=== PATIENT | male | born 1940 | race Caucasian/White ===

== ENCOUNTER → 2017-03-16 | Outpatient (CLI) | payer MEDICARE, BC ==
[~2017-03-16] MED LIST: ASPI325T4 PO; BISA-42 PO; CALC-68 PO; CYAN1TAB15 SL; EZET10TA3 PO; GADOBUTROL 10 MMOL/10 ML VIAL IV ONE; GLUC1TAB26 PO; MULT1TAB13 PO; NAPR220C4 PO; NIAC500T PO; OMEG1CAP72 PO; PRAV20TA2 PO; PSYL0.5215 PO; TURM500C7 PO; [UNRECOGNIZED DRUG - OTHER]
--- NOTE | 2017-03-16 12:51 | KCIC ---
MR LUMBAR SPINE WITH CONTRAST Indication: Low back pain with bilateral lower extremity numbness. TECHNIQUE: Multiple planar multisequence imaging was performed through the lumbar spine. FINDINGS: There is no compression fracture or deformity. Bone marrow signal is within normal limits. The conus terminates normally at the level of T12-L1. Visualized intra-abdominal contents are within normal limits. There is no abnormal intrathecal enhancement. At the level of L2-L3 there is severe central spinal stenosis secondary to a broad-based disc protrusion and facet and ligamentum flavum hypertrophy. At L3-L4 there is edema within the disc space but no abnormal enhancement. At L4-L5 there is a left eccentric disc protrusion which causes right lateral recess stenosis and could impinge upon the descending left L5 nerve. At L5-S1 there is no high-grade stenosis. IMPRESSION: Severe Central spinal stenosis at L2-L3. There is disc edema the level of L3-L4 could be degenerative in nature but early discitis cannot be excluded and follow-up should be considered if there is persistent low back pain. At this time, there is no abnormal disc enhancement or adjacent endplate edema. Electronically signed by: Rajan Acosta MD (03/16/2017 12:48 PM)
== END | disposition home or self-care (01) ==
LOC: KCIC MRI 10:22
PROVIDERS: ATTEND Neurological Surgery
DX: M48.06 Spinal stenosis, lumbar region (principal)
CPT/HCPCS: 72158; 82565; A9585

== ENCOUNTER → 2017-03-29 | Outpatient (CLI) | payer MEDICARE, BC ==
[~2017-03-29] MED LIST changes: -GADOBUTROL 10 MMOL/10 ML VIAL IV ONE
[2017-03-29 15:45] LABS: BASO % 1 % (0-3); EOS % 5 % (0-3); HEMATOCRIT 49.6 % (39.0-53.0); HEMOGLOBIN 16.8 g/dL (13.0-17.5); LYMPH # 1.8 x10^3/uL (1.0-4.8); LYMPH % 26 % (24-48); MEAN CORPUSCULAR HEMOGLOBIN 30 pg (25-35); MEAN CORPUSCULAR HGB CONC 34 g/dL (31-37); MEAN CORPUSCULAR VOLUME 89 fL (79-100); MONO % 9 % (0-9); NEUT % 59 % (31-73); PLATELET COUNT 226 x10^3/uL (140-400); RED CELL DISTRIBUTION WIDTH 13.7 % (11.5-14.5); WHITE BLOOD COUNT 6.8 x10^3/uL (4.0-11.0)
[2017-03-29 16:29] LABS: ALBUMIN 3.8 g/dL (3.4-5.0); ALBUMIN/GLOBULIN RATIO 1.2 (1.0-1.7); CALCIUM 8.7 mg/dL (8.5-10.1); CREATININE 1.1 mg/dL (0.7-1.3); GFR 65.4; TOTAL BILIRUBIN 0.4 mg/dL (0.2-1.0); TOTAL PROTEIN 7.1 g/dL (6.4-8.2)
--- NOTE | 2017-04-01 09:48 | HP ---
ADMIT DATE: Jose Murguia dictating for Dr. Bryan Eaton. Date of surgery will be 04/04/2017. HISTORY OF PRESENT ILLNESS: The patient is a pleasant 76-year-old who underwent surgery by me in 1993 and did well. His current problem is low back pain and right greater than left leg pain. The problem started about 15 years ago. He rates his pain as an 8/10 now. He says standing ____ for long periods is associated with significant pain. He exercises routinely. He finds that that does help him to a degree. He takes Aleve and Tylenol. He has had epidural steroid injections in the fall of 2016, which did not benefit him significantly. PAST MEDICAL HISTORY: Arthritis, artificial joint bilateral hips, heart trouble/disease. PAST SURGICAL HISTORY: Tonsillectomy in 2, knee surgery in 1975, lumbar surgery by [facility] in 1993, left and right hip replacements in 2013 and 2014, polyp removal in 2004. FAMILY HISTORY: Cancer, hypertension, heart disease, spine problems. SOCIAL HISTORY: Retired. . Exercises daily. Nonsmoker. Drinks 1-2 alcoholic drinks daily. Drinks coffee and soda daily. ALLERGIES: No known drug allergies. CURRENT MEDICATIONS: Aleve, ____, pravastatin sodium, niacin, aspirin, vitamin B12, Centrum Silver, calcium citrate, fish oil, glucosamine, Tylenol. REVIEW OF SYSTEMS: A 12-point review of systems was obtained and is noncontributory except for that mentioned above. PHYSICAL EXAMINATION: NEUROSURGERY EXAMINATION: GENERAL APPEARANCE: Alert, pleasant, no acute distress. HEAD: Normocephalic and atraumatic. SKIN: Warm and dry, well-healed lumbar incision. MUSCULOSKELETAL: Lumbar paraspinal muscle bulk is normal, restricted range of motion of the lumbar spine, [id number] tenderness of lower lumbar spine with palpation, normal range of motion of the lower extremities bilaterally. EXTREMITIES: No clubbing, cyanosis, or edema. NEUROLOGIC: Alert and oriented x 3, normal recent and remote memory, strength 5/5 in bilateral lower extremities, sensory was intact to light touch in bilateral lower extremities, reflexes were trace and symmetric in the lower extremities bilaterally, positive straight leg raising on the right, negative straight leg raising on the left, normal gait. IMAGING: Reviewed. I reviewed a lumbar MRI scan. On that I noticed severe stenosis at L2-L3. ASSESSMENT: Spinal stenosis, lumbar region. PLAN: Given that there is severe stenosis at L2-L3, I am recommending a lumbar laminectomy. I did discuss this with him in detail. I spoke about the surgery and the risks involved. I also outlined the expected postoperative course. We will move forward with lumbar MRI scans. BRYAN EATON MD DR: ED/messi JOB#: [id number] / [id number]
== END | disposition home or self-care (01) ==
LOC: SURGPAT 14:38
PROVIDERS: ATTEND Neurological Surgery
DX: M48.06 Spinal stenosis, lumbar region (principal)
CPT/HCPCS: 36415; 80053; 85027; 87641

== ENCOUNTER 2017-04-04 08:15 | Day surgery (SDC) | payer MEDICARE, BC ==
[~2017-04-04] VITALS: Ht 172.7 cm; Wt 94.8 kg
[~2017-04-04 08:15] MED LIST changes: -ASPI325T4 PO; +ASPI325T8 PO; +BACITRACIN 50,000 UNIT in IV NORMAL SALINE 1000ML BAG 1,000 ML IRR ONE; +BUPIVAC MPF-EPI 0.5%-1:200000 30 ML VIAL. ONE; +EZET10TA18 PO; -EZET10TA3 PO; +GELATIN SPONGE SIZE 100. ONE; +HYDROmorphone 2 MG/ML VIAL IV PRN; +IV RINGERS,LACTATED 1000ML 1,000 ML IV SCH; +KETOROLAC 60 MG/2 ML INJ FOR OR. ONE; +LIDOCAINE 1% 1 ML SYRINGE. ID PRN; +MORPHINE SULFATE 2 MG/ML DISP.SYRIN. IV PRN; +OMEG-151 PO; -OMEG1CAP72 PO; +ONDANSETRON PF 4 MG/2 ML VIAL. IV PRN; +PROCHLORPERAZINE 10 MG/2 ML VIAL. IV PRN; +THROMBIN TOPICAL 20,000 UNIT SPRAY.SYRN KIT TP ONE; +fentaNYL PF VIAL 100 MCG/2 ML VIAL IV PRN
[2017-04-04] MEDS ORDERED: ONDANSETRON PF 4 MG/2 ML VIAL. ONE (10:05)
[2017-04-04] MEDS ORDERED: ROCURONIUM 50 MG/5 ML VIAL. ONE (10:05)
[2017-04-04] MEDS ORDERED: 0.9 % SODIUM CHLORIDE 50 ML VIAL. IJ ONE (10:05)
[2017-04-04] MEDS ORDERED: PROPOFOL 50 ML IV ONE ×2 (10:05→13:34)
[2017-04-04] MEDS ORDERED: LIDOCAINE 2% PF Vial for OR 5 ML VIAL. ONE (10:05)
[2017-04-04] MEDS ORDERED: DESFLURANE > 120 MINUTES IH ONE (10:05)
[2017-04-04] MEDS ORDERED: DEXAMETHASONE SOD PHOS 20 MG/5 ML VIAL. ONE (10:05)
[2017-04-04] MEDS ORDERED: MINERAL OIL/PETROLATUM,WHITE OPHTH OINT 3.5GM TUBE. ONE (10:05)
[2017-04-04] MEDS ORDERED: REMIFENTANIL 2 MG VIAL. IV ONE (10:05)
[2017-04-04] MEDS ORDERED: PROPOFOL 20 ML IV ONE (10:05)
[2017-04-04] MEDS ORDERED: PHENYLEPHRINE 10 MG/ML VIAL. ONE (10:05)
[2017-04-04] MEDS ORDERED: MORPHINE SULFATE 10 MG/ML VIAL. ONE (11:30)
[2017-04-04] MEDS ORDERED: GLYCOPYRROLATE 1 MG/5 ML VIAL. ONE (11:31)
--- NOTE | 2017-04-04 14:19 | DISCH ---
DISCHARGE INSTRUCTIONS Condition on Discharge Condition on Discharge: Stable Activity After Discharge Activity Instructions for Disc: Activity as tolerated, Avoid exertion Other activity instructions: no driving for a week Bathing Instructions: Shower-keep dressing dry Lifting Instructions after Dis: No heavy lifting, No pulling or pushing, Do not lift >10 pounds Diet after Discharge Additional Diet Restrictions: resume home diet Wound Incision Care Wound/Incision Care: Ice to area for comfort Other wound/incision instructi: may remove dressing in 48 hrs if dry then may shower- no soaking Contacting the after DC Call your doctor for: Concerns you may have Follow-Up Follow up with: Dr. Eaton's nurse in 2 weeks [phone] OMAR EATON MD Apr 04, 2017 14:19
[2017-04-04] MEDS ORDERED: HYDROcodone/APAP 7.5/325MG 1 TAB TABLET PO PRN (14:45)
[2017-04-04] MEDS ORDERED: HYDR-965 PO (14:45)
[2017-04-04 15:30] VITALS: BP 165/84
--- NOTE | 2017-04-04 23:32 | OP ---
DATE OF SURGERY: 04/04/2017 PREOPERATIVE DIAGNOSES: 1. Lumbar spinal stenosis, L2-L3. 2. Herniated lumbar disc, L2-L3. OPERATION PERFORMED: Right lumbar laminectomy with lumbar microdiscectomy, L2-L3, and left hemilaminotomy with decompression of dura and nerve root at L2-L3. The operation was done with EMG monitoring, fluoroscopy, microscopic dissection. SURGEON: Bryan Eaton M.D. HIRED HELP: James Keating M.D., assisted with the surgery. He assisted with the exposure, the microdecompression, laminectomy and discectomy as well as the closure. OPERATIVE INDICATIONS: The patient is a very pleasant 76-year-old man who about 20 years ago underwent lumbar surgery and did very well from that. He then has developed progressively low back pain and pain which radiates into both of his legs, right greater than the left. That pain has become very severe and it is in a neurogenic claudication type pattern. He had epidural steroid injections, most recently as 2015, which did help him for a short time, but gave no significant long lasting relief. On imaging studies, there is a posterior disc bulging/herniation which is significant along with severe hypertrophic facet and ligamentum flavum thickening resulting in severe lumbar spinal stenosis at L2-L3. I spoke with him about lumbar microdecompressive surgery. I spoke about the surgery, the risks, the technique and expected postoperative course and he wished to go ahead. DESCRIPTION OF PROCEDURE: Following general endotracheal anesthesia, the patient was positioned prone on the Asa table. His lumbar region was prepped and draped in standard fashion. LASHAUN hose and AV impulse boots were applied for DVT prophylaxis and microscope was draped. Fluoroscopy was draped and brought into field. Monitoring was established. Ancef 2 grams was given less than 1 hour prior to initiation of the surgery. Using fluoroscopic guidance, an incision was made over the L2-L3 interspace. I dissected down through skin and subcutaneous tissue and reflected the paraspinal muscles to the right side and placed a Montgomery micro disc retractor, brought in the microscope and the remainder of the surgery was done with the microscope using microscopic technique. I burred down a generous hemilaminotomy with a high speed air drill and then worked down and undercut across the midline, then worked laterally and performed a generous foraminotomy. I grasped and peeled back the very thickened ligamentum flavum which was scarred to the dura. I was able to free this up and then peeled the ligamentum away. I gently reflected the nerve root medially with a micro nerve root retractor and there was significant posterior disc bulging, part of which was calcified and part of which was not. I incised the ligament annulus and performed a discectomy with pituitary rongeurs. As I worked, the region became further decompressed. This accomplished, then I did coagulate a few epidural veins. I obtained excellent hemostasis with the bipolar cautery as well as bone wax. I irrigated copiously, removed the retractor. I then performed the identical operation on the left side, although I did not cross the midline and performed a hemilaminotomy on this side. Again, there was very thickened ligamentum flavum which was markedly compressing the dura, again it was calcified and thickened. The disc posterior bulging was densely calcified and no discectomy was warranted on the left. At any rate, following the wide decompression, then I irrigated copiously with antibiotic solution. Hemostasis was again obtained with bipolar cautery as well as bone wax and I removed the retractor from this side and obtained hemostasis in the muscle and I closed the wound in layers with absorbable suture after copious irrigation. The skin was closed with a 4-0 subcuticular stitch. The surgery went very well and the patient was taken uneventfully to the recovery room. I was quite pleased with the surgery. BRYAN EATON MD DR: ED/messi JOB#: [id number] / [id number] BASSAM
--- NOTE | 2017-04-06 15:20 | PATHOLOGY ---
PATHOLOGY REPORT * * * * * * * * FINAL DIAGNOSIS: Segments of fibrocartilaginous, fibroadipose, and skeletal muscle tissue and bone, lumbar decompression: - Degenerative changes of fibrocartilaginous tissue. COMMENT: There is no evidence of an acute inflammatory process or malignancy. (JPM:mgcam; d/t: 04/06/17) REPORT ELECTRONICALLY SIGNED BY: Gurjit Boucher M.D. DATE/TIME: 04/06/2017 15:20 * * * * * * * * GROSS PATHOLOGY: Received in formalin labeled "Sylvester Henley, lumbar decompression" are multiple segments of christianson, rubbery, and gritty tissue admixed with bone. The specimen measures 2.7 x 2.5 x 0.9 cm in aggregate dimensions. The tissue is submitted representatively in cassette A1, following decalcification. (JPM; 04/05/17) INITIAL CPT CODE(S): A; 77246, 79331 Professional services [place] [address] Technical services performed by [facility] at [address] [place] [address]. SPECIMEN(S) RECEIVED: A.Lumbar decompression, laminectomy CLINICAL HISTORY: Lumbar stenosis PATIENT: SYLVESTER HENLEY /AGE: 805/27/1940 (Age: 76) PATIENT #: [id number] ALT CASE #: SPECIMEN COLLECTION DATE: 04/04/2017 SPECIMEN RECEIVED DATE: 04/05/2017 [facility] - [address] [place] [address] - PHONE: [phone] * * * END OF REPORT * * *
== END 2017-04-04 16:45 | disposition home or self-care (01) ==
LOC: SURG 08:15
PROVIDERS: ATTEND Neurological Surgery
DX: M51.26 Other intervertebral disc displacement, lumbar region (principal); M48.06 Spinal stenosis, lumbar region; E78.00 Pure hypercholesterolemia, unspecified; M19.90 Unspecified osteoarthritis, unspecified site; Z86.69 Personal history of other diseases of the nervous system and sense organs; Z96.643 Presence of artificial hip joint, bilateral; Z72.89 Other problems related to lifestyle
CPT/HCPCS: 63030; 76000; 97162; 97530; J0690; J1100; J1885; J2270; J2405; J2704; J3490; J7030

== ENCOUNTER 2017-04-07 08:06 | Emergency (ER) | payer MEDICARE, BC ==
[~2017-04-07] VITALS: Ht 172.7 cm; Wt 93.4 kg
[~2017-04-07 08:06] MED LIST changes: -BACITRACIN 50,000 UNIT in IV NORMAL SALINE 1000ML BAG 1,000 ML IRR ONE; -BUPIVAC MPF-EPI 0.5%-1:200000 30 ML VIAL. ONE; -GELATIN SPONGE SIZE 100. ONE; +HYDR-965 PO; -HYDROmorphone 2 MG/ML VIAL IV PRN; -IV RINGERS,LACTATED 1000ML 1,000 ML IV SCH; -KETOROLAC 60 MG/2 ML INJ FOR OR. ONE; -LIDOCAINE 1% 1 ML SYRINGE. ID PRN; -MORPHINE SULFATE 2 MG/ML DISP.SYRIN. IV PRN; -ONDANSETRON PF 4 MG/2 ML VIAL. IV PRN; -PROCHLORPERAZINE 10 MG/2 ML VIAL. IV PRN; -THROMBIN TOPICAL 20,000 UNIT SPRAY.SYRN KIT TP ONE; -fentaNYL PF VIAL 100 MCG/2 ML VIAL IV PRN
[2017-04-07] MEDS ORDERED: IV NORMAL SALINE 1000ML BAG 1,000 ML IV ONE (08:30)
--- NOTE | 2017-04-07 08:38 | PHYS DOC ---
Adult General Chief Complaint Chief Complaint: POST-OP PROBLEM HPI HPI Patient is a 76-year-old male with a history of high cholesterol, lumbar stenosis post lumbar laminectomy done on April 04, [address] Eaton who presents today with multiple complaints. Patient states he has noted increased low back pain post since yesterday with increased drainage from the surgical site. Patient is also complaining of a rash that began 2 days ago. She is also complaining of a fever since this morning. is in the ED who states she took patient's oral temperature this morning which was 100.2. Patient is also complaining of constipation. Patient states he had a small bowel movement this morning but has not had a normal bowel movement for the last 3 days. Patient denies any nausea vomiting. PCP Dr. Pierce Review of Systems Review of Systems Constitutional: fever Eyes: Denies change in visual acuity, redness, or eye pain [] HENT: Denies nasal congestion or sore throat [] Respiratory: Denies cough or shortness of breath [] Cardiovascular: No additional information not addressed in HPI [] GI: constipation : Denies dysuria or hematuria [] Musculoskeletal: back pain Integument: rash Neurologic: Denies headache, focal weakness or sensory changes [] Endocrine: Denies polyuria or polydipsia [] Current Medications Current Medications Current Medications Medications (Trade) Dose Ordered Sig/Siva Start Time Stop Time Status Last Admin Dose Admin Ketorolac Tromethamine (Toradol) 30 mg 1X ONCE 04/07/17 09:15 04/07/17 09:16 DC 04/07/17 09:18 30 MG Magnesium Citrate (Citroma) 296 ml 1X ONCE 04/07/17 09:45 04/07/17 09:46 DC 04/07/17 09:42 296 ML Sodium Chloride 1,000 ml @ 1,000 mls/hr 1X ONCE 04/07/17 08:30 04/07/17 09:29 DC 04/07/17 08:35 1,000 MLS/HR Allergies Allergies Allergies Coded Allergies Type Severity Reaction Last Updated Verified No Known Allergies Allergy Unknown 04/04/17 Yes Physical Exam Physical Exam Constitutional: Well developed, well nourished, no acute distress, non-toxic appearance. [] HENT: Normocephalic, atraumatic, bilateral external ears normal, oropharynx moist, no oral exudates, nose normal. [] Eyes: PERRLA, EOMI, conjunctiva normal, no discharge. [] Neck: Normal range of motion, no tenderness, supple, no stridor. [] Cardiovascular:Heart rate regular rhythm, no murmur [] Lungs & Thorax: Bilateral breath sounds clear to auscultation [] Abdomen: Bowel sounds normal, soft, no tenderness, no masses, no pulsatile masses. [] Skin: two grouped fluid filled erythematous vesicles on the left lateral chest and on similar lesion on the right lateral chest both lesions following the T5 dermatome nerve Back: lumbar with a well approximated surgical incision with no drainage on exam. There is trace drainage on the dressing. Mild midline incisional tenderness. No CVA tenderness. [] Extremities: No tenderness, no cyanosis, no clubbing, ROM intact, no edema. [] Neurologic: Alert and oriented X 3, normal motor function, normal sensory function, no focal deficits noted. [] Psychologic: Affect normal, judgement normal, mood normal. [] Current Patient Data Vital Signs Vital Signs Date Time Temp Pulse Resp B/P (MAP) Pulse Ox O2 Delivery O2 Flow Rate FiO2 04/07/17 10:13 64 21 144/65 (91) 95 Room Air 04/07/17 08:24 97.8 97.8 Lab Values Laboratory Tests Test 04/07/17 08:30 04/07/17 09:25 White Blood Count 8.5 x10^3/uL (4.0-11.0) Red Blood Count 5.51 x10^6/uL (4.30-5.70) Hemoglobin 16.8 g/dL (13.0-17.5) Hematocrit 49.3 % (39.0-53.0) Mean Corpuscular Volume 90 fL (79-100) Mean Corpuscular Hemoglobin 31 pg (25-35) Mean Corpuscular Hemoglobin Concent 34 g/dL (31-37) Red Cell Distribution Width 13.6 % (11.5-14.5) Platelet Count 228 x10^3/uL (140-400) Neutrophils (%) (Auto) 76 % (31-73) H Lymphocytes (%) (Auto) 13 % (24-48) L Monocytes (%) (Auto) 8 % (0-9) Eosinophils (%) (Auto) 2 % (0-3) Basophils (%) (Auto) 0 % (0-3) Neutrophils # (Auto) 6.5 x10^3uL (1.8-7.7) Lymphocytes # (Auto) 1.1 x10^3/uL (1.0-4.8) Monocytes # (Auto) 0.7 x10^3/uL (0.0-1.1) Eosinophils # (Auto) 0.2 x10^3/uL (0.0-0.7) Basophils # (Auto) 0.0 x10^3/uL (0.0-0.2) Prothrombin Time 13.5 SEC (11.7-14.0) Prothrombin Time INR 1.1 (0.8-1.1) PTT 33 SEC (24-38) Sodium Level 137 mmol/L (136-145) Potassium Level 3.7 mmol/L (3.5-5.1) Chloride Level 101 mmol/L (98-107) Carbon Dioxide Level 32 mmol/L (21-32) Anion Gap 4 (6-14) L Blood Urea Nitrogen 18 mg/dL (8-26) Creatinine 1.1 mg/dL (0.7-1.3) Estimated GFR (Cockcroft-Gault) 65.4 BUN/Creatinine Ratio 16 (6-20) Glucose Level 123 mg/dL (70-99) H Lactic Acid Level 1.4 mmol/L (0.4-2.0) Calcium Level 8.7 mg/dL (8.5-10.1) Total Bilirubin 0.9 mg/dL (0.2-1.0) Aspartate Amino Transferase (AST) 23 U/L (15-37) Alanine Aminotransferase (ALT) 27 U/L (16-63) Alkaline Phosphatase 70 U/L (46-116) Total Protein 8.1 g/dL (6.4-8.2) Albumin 3.3 g/dL (3.4-5.0) L Albumin/Globulin Ratio 0.7 (1.0-1.7) L Procalcitonin < 0.10 ng/mL (0.00-0.10) Urine Collection Type Unknown Urine Color Yellow Urine Clarity Clear Urine pH 6.0 Urine Specific [place] 1.020 Urine Protein Negative mg/dL (NEG-TRACE) Urine Glucose (UA) Negative mg/dL (NEG) Urine Ketones (Stick) Negative mg/dL (NEG) Urine Blood Negative (NEG) Urine Nitrite Negative (NEG) Urine Bilirubin Negative (NEG) Urine Urobilinogen Dipstick 0.2 mg/dL (0.2 mg/dL) Urine Leukocyte Esterase Negative (NEG) Urine RBC Occ /HPF (0-2) Urine WBC Occ /HPF (0-4) Urine Squamous Epithelial Cells Few /LPF Urine Bacteria 0 /HPF (0-FEW) Urine Mucus Marked /LPF Laboratory Tests 04/07/17 08:30 Laboratory Tests 04/07/17 08:30 EKG EKG [] Radiology/Procedures Radiology/Procedures []PROCEDURE: ACUTE ABDOMEN SERIES Acute abdominal series to include a PA chest radiograph 04/07/2017 Clinical History: Constipation for 3 days. A PA digital radiograph of the chest was obtained. Supine and erect AP digital radiographs of the abdomen/pelvis were obtained. No previous studies are available for comparison. The cardiac silhouette is normal in size. Atherosclerotic calcification of the thoracic aorta is seen. No acute pulmonary infiltrate is seen. No pleural effusion or pneumothorax is noted. The patient is status post bilateral ELLA. The abdominal bowel gas pattern is nonobstructive. A moderate amount of stool is seen throughout the colon. There is no evidence of free air. No radiopaque calculus is seen. Degenerative changes are seen involving the thoracic and lumbar spine. Impression: Nonobstructive bowel gas pattern. A moderate amount of stool is seen throughout the colon. DICTATED and SIGNED BY: CATARINA CASTRO MD DATE: 04/07/17 0915 Course & Med Decision Making Course & Med Decision Making Pertinent Labs and Imaging studies reviewed. (See chart for details) This is a 76-year-old male patient who presents today post laminectomy 2016 with multiple complaints including a fever of 100.2 this morning, rash consistent with shingles for 2 days, increased back pain and constipation. He took hydrocodone for pain. He is afebrile in the ED. CBC is 8.5, CMP with no acute findings, lactic acid is normal. Acute abdominal series interpreted by radiologist is noted for moderate amount of stool in patient's colon. Patient does not appear septic. He is in no distress. His incision appears well approximated with trace drainage on the dressing. Vitals on arrival to the ED temperature 97.8, heart rate 65, respiration 18, blood pressure 167/79, O2 sats 96% on room air. Consulted with Dr. Keating electronics test engineer for Dr. Eaton who stated patient can be discharged and follow-up with the primary care doctor for the shingles as well as follow-up with Dr. Garibay by calling the office tomorrow to get a follow- up appointment. Patient was given magnesium citrate in the ED as well as of milk of molasses enema. He did have a large bowel movement. We educated him on a strict bowel regimen especially on hydrocodone including increasing water intake, increasing dietary fiber intake, MiraLAX, docusate daily. Patient was provided return precautions and discharged in stable condition. Dragon Disclaimer Dragon Disclaimer This electronic medical record was generated, in whole or in part, using a voice recognition dictation system. Departure Departure Impression: Primary Impression: Constipation Additional Impressions: Shingles Back pain Fever Disposition: HOME, SELF-CARE Condition: STABLE Referrals: ZIYAD PIERCE MD (PCP) Follow-up with with the primary care doctor in one week OMAR EATON MD Call his office tomorrow morning and get a follow-up appointment. Patient Instructions: Back Pain, Adult, Constipation, Adult, Fever, Adult, Shingles, [id number] Additional Instructions: He was seen in the emergency room today for multiple complaints. For constipation increase your dietary fiber intake, increase your water intake. Take Docusate sodium every day as well as MiraLAX. You did not have a fever in the emergency room. If you have a fever come back to the ED. Take the prescribed medicines to help with shingles. Do not be around women and children until the shingles are gone. Call your neurosurgeon today or tomorrow morning and get a follow-up appointment. Come back to the ED if symptoms worsen. Scripts Acyclovir (ACYCLOVIR) 800 Mg Tablet 1 TAB PO 5XDAY, #50 TAB Prov: MUTUNGA,ALBINO [employer]ERNMENT CONTRACTS MANAGER 04/07/17 Prednisone (PREDNISONE) 50 Mg Tablet 1 TAB PO DAILY, #5 TAB Prov: MUTUNGA,ALBINO [employer] CONTRACTS MANAGER 04/07/17 Polyethylene Glycol 3350 (MIRALAX) 17 Gm Powd.pack 1 PACKET PO DAILY, #30 PACKET 3 Refills Prov: MUTUNGA,ALBINO [employer]ERN[employer] CONTRACTS MANAGER 04/07/17 Problem Qualifiers MUTUNGA,ALBINO [employer]OVERNMENT CONTRACTS MANAGER Apr 07, 2017 08:38
[2017-04-07 08:47] LABS: BASO % 0 % (0-3); EOS % 2 % (0-3); HEMATOCRIT 49.3 % (39.0-53.0); HEMOGLOBIN 16.8 g/dL (13.0-17.5); LYMPH # 1.1 x10^3/uL (1.0-4.8); LYMPH % 13 % (24-48); MEAN CORPUSCULAR HEMOGLOBIN 31 pg (25-35); MEAN CORPUSCULAR HGB CONC 34 g/dL (31-37); MEAN CORPUSCULAR VOLUME 90 fL (79-100); MONO % 8 % (0-9); NEUT % 76 % (31-73); PLATELET COUNT 228 x10^3/uL (140-400); RED BLOOD COUNT 5.51 x10^6/uL (4.30-5.70); RED CELL DISTRIBUTION WIDTH 13.6 % (11.5-14.5); WHITE BLOOD COUNT 8.5 x10^3/uL (4.0-11.0)
[2017-04-07 08:54] LABS: CALCIUM 8.7 mg/dL (8.5-10.1); CREATININE 1.1 mg/dL (0.7-1.3); GFR 65.4; POTASSIUM 3.7 mmol/L (3.5-5.1)
[2017-04-07 08:59] LABS: ALBUMIN 3.3 g/dL (3.4-5.0); ALBUMIN/GLOBULIN RATIO 0.7 (1.0-1.7); TOTAL BILIRUBIN 0.9 mg/dL (0.2-1.0); TOTAL PROTEIN 8.1 g/dL (6.4-8.2)
[2017-04-07 09:01] LABS: INR 1.1 (0.8-1.1); PROTHROMBIN TIME PATIENT 13.5 SEC (11.7-14.0)
[2017-04-07] MEDS ORDERED: KETOROLAC TROMETHAMINE 30 MG/ML INJ. IV ONE (09:15)
--- NOTE | 2017-04-07 09:19 | RAD ---
Acute abdominal series to include a PA chest radiograph 04/07/2017 Clinical History: Constipation for 3 days. A PA digital radiograph of the chest was obtained. Supine and erect AP digital radiographs of the abdomen/pelvis were obtained. No previous studies are available for comparison. The cardiac silhouette is normal in size. Atherosclerotic calcification of the thoracic aorta is seen. No acute pulmonary infiltrate is seen. No pleural effusion or pneumothorax is noted. The patient is status post bilateral ELLA. The abdominal bowel gas pattern is nonobstructive. A moderate amount of stool is seen throughout the colon. There is no evidence of free air. No radiopaque calculus is seen. Degenerative changes are seen involving the thoracic and lumbar spine. Impression: Nonobstructive bowel gas pattern. A moderate amount of stool is seen throughout the colon.
[2017-04-07 09:34] LABS: BILIRUBIN,URINE NEGATIVE (NEG); GLUCOSE,URINE NEGATIVE (NEG); NITRITE,URINE NEGATIVE (NEG); PROTEIN,URINE NEGATIVE (NEG-TRACE); UROBILINOGEN,URINE 0.2 mg/dL (0.2 mg/dL)
[2017-04-07] MEDS ORDERED: MAGNESIUM CITRATE 296 ML SOLUTION. PO ONE (09:45)
--- NOTE | 2017-04-07 09:49 | ACF ---
Admission Forms Criteria BACK PAIN Clinical Indications for Admission to Inpatient Care (Place 'X' for any and all applicable criteria): Admission is indicated for ANY ONE of the following (1)(2)(3)(4)(5)(6): [X]I. Inpatient admission required rather than observation care (Also use Back Pain: Observation Care as appropriate) because of ANY ONE of the following [ ]a) Severe pain requiring acute inpatient management [ ]b) Immediate inpatient surgery [X]c) Other condition, treatment or monitoring requiring inpatient admission [ ]II. Spine fracture with significant damage or threat of damage to vertebral column or spinal cord [ ]III. Progressive or severe neurologic deficit [ ]IV. Suspected spinal infection (e.g., epidural abscess, vertebral osteomyelitis)(10) [ ]V. Suspected cause requires inpatient treatment (eg, aortic dissection) [ ]. Cauda equina syndrome as indicated by ANY ONE of the following (9): [ ]a) Bowel dysfunction [ ]b) Bladder dysfunction [ ]c) Saddle anesthesia [ ]d) Neurologic abnormality suggesting cauda equina impingement Extended stay beyond goal length of stay may be needed for (3)(25): [ ]a) Spinal cord compression from stenosis, disk, or tumor (8)(9) [ ]b) Traumatic or pathologic vertebral fracture (33) [ ]c) Vertebral infection(10) [ ]d) Severe pain that is difficult to control [ ]e) Older patients(65 years or older) The original [employer] content created by [employer] has been revised. The portions of the content which have been revised are identified through the use of italic text or in bold, and [facility] has neither reviewed nor approved the modified material. All other unmodified content is copyright [employer]. Please see references footnoted in the original [facility] edition 2016 Admission Criteria Met?: Pending MILLER RODRIGUEZ Apr 07, 2017 09:49
[2017-04-07 09:50] LABS: BACTERIA,URINE 0 /HPF (0-FEW); RBC,URINE OCC /HPF (0-2); SQUAMOUS EPITHELIAL CELL,UR FEW /LPF; WBC,URINE OCC /HPF (0-4)
[2017-04-07 10:13] VITALS: BP 144/65
[2017-04-07] MEDS ORDERED: POLY17PO29 PO (11:36)
[2017-04-07] MEDS ORDERED: PRED50TA PO (11:36)
[2017-04-07] MEDS ORDERED: ACYC800T PO (11:36)
== END 2017-04-07 11:48 | disposition home or self-care (01) ==
LOC: ER 08:06
DX: K59.00 Constipation, unspecified (principal); B02.9 Zoster without complications; M54.5 Low back pain; E78.00 Pure hypercholesterolemia, unspecified; M48.06 Spinal stenosis, lumbar region
CPT/HCPCS: 36415; 74022; 80053; 81001; 83605; 84145; 85027; 85610; 85730; 96361; 96374; 99285; J1885; J7030